=== PATIENT | male | born 1995 | race African-American/Black ===

== ENCOUNTER 2016-05-10 19:26 | Emergency (ER) | payer OTHER ==
[~2016-05-10] VITALS: Ht 167.6 cm; Wt 77.9 kg
[2016-05-10 19:33] VITALS: Ht 167.6 cm; Wt 77.9 kg
[2016-05-10] MEDS ORDERED: LIDOCAINE 1%/EPI (MDV) 20 ML INJ INJ STA (21:02)
[2016-05-10] MEDS ORDERED: CEPHALEXIN 500 MG CAP PO STA (21:02)
[2016-05-10] MEDS ORDERED: TRIMETHOPRIM/SULFAMETHOX (DS) TAB PO STA (21:02)
--- NOTE | 2016-05-10 21:07 | ERD ---
ER Documentation Chief Complaint Date/Time DATE: 05/10/16 TIME: 21:05 Chief Complaint Painful Abcess under R arm X 3 days HPI This is a 18-year-old male presenting to the emergency department complaining of a painful lump underneath his right underarm for the past 3 days. Patient states the pain is moderate in severity. He denies any fever. He denies any drug use. Denies taking any medication for this ROS All systems reviewed and are negative except as per history of present illness. Medications Home Meds Active Scripts Ibuprofen* (Motrin*) 600 Mg Tab, 600 MG PO Q6H Y for PAIN AND OR ELEVATED TEMP, #30 TAB Prov:MADHURI MCKEON PA-C 05/10/16 Sulfamethoxazole-Trimethoprim* (Bactrim* DS) 800-160 Mg Tab, 1 TAB PO BID for 5 Days, TAB Prov:MADHURI MCKEON PA-C 05/10/16 Cephalexin* (Keflex*) 500 Mg Capsule, 500 MG PO QID for 7 Days, CAP Prov:MADHURI MCKEON PA-C 05/10/16 PMhx/Soc Medical and Surgical Hx: pt denies Medical Hx, pt denies Surgical Hx History of Surgery: No Anesthesia Reaction: No Hx Neurological Disorder: No Hx Respiratory Disorders: No Hx Cardiac Disorders: No Hx Psychiatric Problems: No Hx Miscellaneous Medical Probl: No Hx Alcohol Use: No Hx Substance Use: No Hx Tobacco Use: Yes (DAILY MARIJUANA) Smoking Status: Current every day smoker Physical Exam Vitals Vital Signs Date Time Temp Pulse Resp B/P Pulse Ox O2 Delivery O2 Flow Rate FiO2 05/10/16 19:33 97.6 81 20 134/62 100 Physical Exam General: WD/WN, in no apparent distress, non-toxic appearing HENT: NC/AT Eyes: Conjunctiva normal Neck: Supple Pulm: Clear to auscultation, normal labored breathing; no wheezing/rales/ rhonchi heard CV: Good capillary refill GI: Non-distended, no guarding Back: No masses Ext: No clubbing, cyanosis, or edema Neuro: Moves on all fours Skin: 5 x 5 erythematous fluctuant papule consistent with an abscess Normal turgor, color, and temperature. No ulcerations or rashes noted. Psych: Normal mood Results 24 hrs Current Medications Medications (Trade) Dose Ordered Sig/Susan Route PRN Reason Start Time Stop Time Status Last Admin Dose Admin Lidocaine/ Epinephrine (Xylocaine 1%/ Epi (Mdv) 20 ml) 20 ml ONCE STAT INJ 05/10/16 21:02 05/10/16 21:05 DC Diphtheria/ Tetanus/Acell Pertussis (Adacel) 0.5 ml ONCE ONCE IM* 05/10/16 21:30 05/10/16 21:31 DC 05/10/16 21:24 Cephalexin (Keflex) 500 mg ONCE STAT PO 05/10/16 21:02 05/10/16 21:05 DC 05/10/16 21:23 Trimethoprim/ Sulfamethoxazole (Bactrim (Ds)) 1 tab ONCE STAT PO 05/10/16 21:02 05/10/16 21:05 DC 05/10/16 21:23 Procedures/MDM This is a 20-year-old male presenting to the emergency department with symptoms and signs of most consistent with a abscess under the right underarm the past 3 days. In the ED patient was given Keflex and Bactrim, he is up-to-date on his tetanus shot. There was no evidence of tendon or arterial damage. There was no evidence of osteomyelitis, lymphangitis, necrotizing fasciitis. Hemodynamically stable. Discussed two day wound check. Prescription for Keflex and Bactrim are provided. Return sooner if condition worsens. Patient understood and agreed with this plan. PROCEDURE NOTE: Verbal consent was obtained Wound was irrigated with normal saline Wound was cleansed with Betadine 5cc Lidocaine 1% with epinephrine was used as a local anesthetic #11 blade scalpel was used for a single 0.5cm incision. Copious drainage of purulence occurred, wound was irrigated with normal saline Wound packed with iodoform gauze strips Procedure tolerated without complications Wound dressed with sterile gauze. Departure Diagnosis: Primary Impression: Abscess Condition: Stable MADHURI MCKEON PA-C May 10, 2016 21:07
[2016-05-10] MEDS ORDERED: IBUP-1542 PO (21:25)
[2016-05-10] MEDS ORDERED: CEPH-443 PO (21:25)
[2016-05-10] MEDS ORDERED: BACTDS PO (21:25)
[2016-05-10] MEDS ORDERED: DIPHTH/TET/ACEL PERTUSS (ADULT) 0.5 ML VIAL IM* ONE (21:30)
== END 2016-05-10 22:28 | disposition home or self-care (01) ==
LOC: FTE 19:26
DX: L02.413 Cutaneous abscess of right upper limb (principal); F17.210 Nicotine dependence, cigarettes, uncomplicated; Z23 Encounter for immunization
CPT/HCPCS: 10061; 90471; 90715; Z7502; Z7610